=== PATIENT | female | born 1975 | race Caucasian/White ===

== ENCOUNTER 2024-02-13 06:51 | Emergency (ER) | payer OTHER, SELFPAY ==
[2024-02-13 06:52] VITALS: BP 165/81; PULSE 78; RESP 15; TEMP 36.8; O2SAT 96; BMI 37.3
--- NOTE | 2024-02-13 07:01 | XR_ITS ---
FINAL REPORT CLINICAL HISTORY: R knee pain COMPARISON: None FINDINGS: Three views of the right knee reveal no evidence of fracture or dislocation. The bony alignment is normal. Moderate to severe degenerative changes are noted. There is severe medial compartment and patellofemoral compartment narrowing. There are several loose bodies in the suprapatellar bursa and posteriorly. There is no evidence of joint effusion. IMPRESSION: Several loose bodies in the suprapatellar bursa and posteriorly. Reviewed, Interpreted and Dictated by Avni Solano III, MD Transcribed by Zeynep Torrez Authenticated and [facility]
--- NOTE | 2024-02-13 07:02 | ED_ITS ---
Discharge Plan Disposition Patient Disposition: Home, Self-Care Referrals Follow up/Referrals: Kristian Vázquez [Primary Care Provider] - See instructions Dl Mittal DO [Staff Physician] - See instructions Activity Restrictions/Add. Instructions Additional Instructions/Restrictions: Take Tylenol 1000 mg every 6 hours and ibuprofen 400 mg every 6 hours as needed for pain. Weight-bear as tolerated. Follow-up with orthopedic surgery. You should call their clinic to schedule an appointment. Information has been attached. Please return to the emerged part with any new, concerning, or worsening symptoms. Clinical Impressions Clinical Impression: Acute knee pain Qualifiers: Laterality: right Qualified Code(s): M25.561 - Pain in right knee Stand Alone Forms Stand Alone Forms: Work/School Release Print Language Print Language: Barbadian Discharge ED Provider: Casey Brothers General Adult HPI General Chief complaint: Extremity Injury, Lower Stated complaint: R knee pain, swelling Time Seen by Provider: 02/13/24 06:54 Mode of Arrival: Ambulatory Source of Information: Patient Limitations: No Limitations History of Present Illness HPI narrative: This is a 48-year-old female who presents with right knee pain. States that her knee has been bothering her over the last couple of days however popped in the middle of the night last night and she has had worsening pain since then. Has been ambulatory with difficulty. States that she has to walk up multiple stairs for work. Is able to flex knee, however not all the way. No other known injuries. States that she had a body fragment removal surgery in her right knee in the past up in [place]. Related Data Allergies Allergy/AdvReac Type Severity Reaction Status Date / Time No Known Allergies Allergy Verified 02/13/24 07:15 [facility] Disclaimer: The information contained in this section may have been updated after the patient was seen, as this information can be updated by other users. Social History Smoking Status: Never smoker alcohol intake: former current occupational status: employed Travel in the last 8 weeks: None ROS Obtained: Yes All systems reviewed & no additional complaints except as documented Physical Exam General General appearance: alert and in no apparent distress Eye Eye exam: Present normal appearance, PERRL and EOMI Respiratory Respiratory exam: Present normal lung sounds bilaterally; Absent respiratory distress Cardiovascular Cardiovascular exam: Present regular rate and normal rhythm Abdominal Exam Abdominal exam: Present soft and distention; Absent tenderness, guarding or rebound Extremities Exam Extremities exam: Present other (RLE: Tenderness at the lateral joint line. No significant effusion. Active and passive range of motion limited secondary to pain. Able to flex to about 50 degrees. Neurovascularly intact distally. ) Neurological Exam Neurological exam: Present alert and oriented X3 Skin Skin exam: Present warm and dry Medical Decision Making Medical Records Medical records reviewed: Yes I reviewed the patient's medical records. Screening: Per USPSTF and CDC recommendations, given the prevalence of disease in our region, it is our hospital?s policy to screen for HIV and viral Hepatitis for all patients aged 18 and over and those with ongoing risk factors. Faustino Inquiry Pt receiving controlled substance: No Vital Signs: 02/13/24 06:52 02/13/24 07:30 Temperature 98.3 F Temperature Source Oral Pulse Rate 71 Pulse Rate [Right] 78 Respiratory Rate 15 Blood Pressure 159/75 H Blood Pressure [Right Arm] 165/81 H Blood Pressure Mean [Right Arm] 109 Blood Pressure Source [Right Arm] Automatic Cuff Blood Pressure Position [Right Arm] Supine 02 Sat by Pulse Oximetry 96 96 Oxygen Delivery Method Room Air Room Air Orders (Tests/Meds): ED MEDICATIONS Discontinued Medications Generic Name Dose Route Start Last Admin Trade Name Freq PRN Reason Stop Dose Admin Acetaminophen 1,000 mg 02/13/24 07:01 02/13/24 07:25 Acetaminophen 500mg Tab PO 02/13/24 07:02 1,000 mg ONCE ONE Administration Ibuprofen 400 mg 02/13/24 07:01 02/13/24 07:25 Ibuprofen 400 Mg Tablet PO 02/13/24 07:02 400 mg ONCE ONE Administration ORDERS Category Date Time Status Knee XR right 3 views [XR knee RT 3V] Stat Exams 02/13/24 07:01 Taken Medical Decision Narrative: In summary, this 48-year-old female presents to the emergency department today with right knee pain. On initial evaluation patient is nontachycardic, afebrile, nontoxic-appearing. No significant effusion to the right knee. Limited range of motion to 45 degrees of flexion secondary to pain. No deformity. Tenderness of the lateral joint line. Differential diagnosis includes but is not limited to meniscus injury, other ligamentous injury, fracture, dislocation, septic arthritis. Low clinical suspicion for septic arthritis given no significant erythema or joint effusion. No fever. Based on these concerns, I ordered x-ray of the right knee. Patient received Tylenol 1000 mg and ibuprofen 400 mg for treatment. XR personally interpreted demonstrates no acute fractures or dislocations. Chronic degenerative changes suggestive of osteoarthritis. Gave referral to orthopedic surgery for follow-up. Instructed on symptomatic management at home. Appropriate for discharge at this time. Patient was ambulatory Critical Care Critical Care Time Critical Care Time: No
--- NOTE | 2024-02-13 07:10 | PC.NURSE ---
PT AMBULATORY TO XR
[2024-02-13] MEDS: IBUPROFEN 400 MG TABLET PO (07:25)
[2024-02-13] MEDS: ACETAMINOPHEN 500MG TAB 1000 MG PO (07:25)
--- NOTE | 2024-02-13 07:29 | PC.NURSE ---
PT RETURNED FROM XR
[2024-02-13 07:30] VITALS: BP 159/75; PULSE 71; O2SAT 96
--- NOTE | 2024-02-13 07:37 | PC.NURSE ---
Patient in room. No needs at this time with the call button.
--- NOTE | 2024-02-13 07:42 | PC.NURSE ---
BIENVENIDO BREWER at for update on POC
[2024-02-13 07:55] VITALS: BP 159/75; PULSE 71; RESP 18; TEMP 36.8; O2SAT 96
== END 2024-02-13 07:55 | disposition home or self-care (01) ==
PROVIDERS: Emergency Provider Student in an Organized Health Care Education/Training Program; PCP Pediatrics
DX: M25.561 Pain in right knee (principal)
CPT/HCPCS: 73562; 99283

== ENCOUNTER 2024-02-23 14:55 | Emergency (ER) | payer OTHER, SELFPAY ==
[2024-02-23] VITALS (8 sets, daily range): BP systolic 129–170; BP diastolic 77–128; PULSE 72–83; RESP 12–24; TEMP 36.8–36.9; O2SAT 98–100; BMI 36.2
--- NOTE | 2024-02-23 14:54 | ECG_ITS ---
APPROVED REPORT Exam: Resting ECG HR:68 bpm ECG Measurements Heart Rate 68 AXES WY 176 P 34 QRSd 96 QRS 47 QT 433 T 59 QTc 450 Conclusion SINUS RHYTHM NORMAL ECG UNCONFIRMED REPORT Electronically signed by : SYLVESTER GORMAN, 02/24/2024 06:50:26
--- NOTE | 2024-02-23 15:11 | PC.NURSE ---
Difficulty obtaining labs d/t pt being a difficult stick.
--- NOTE | 2024-02-23 15:12 | XR_ITS ---
FINAL REPORT CLINICAL HISTORY: chest tightness, pre-syncopal episode @ work COMPARISON: None FINDINGS: No acute pulmonary opacity is present. There is no evidence of effusion or pneumothorax. Mediastinum is unremarkable. Heart size is normal. IMPRESSION: No acute abnormality. Reviewed, Interpreted and Dictated by Peter Grant MD Transcribed by Zeynep Torrez Authenticated and [facility]
[2024-02-23 15:42] LABS: Albumin Level 3.8 g/dl (3.5-5.0); Chloride 108 mmol/L (98-107)
[2024-02-23 15:43] LABS: Potassium 3.6 mmoL/L (3.5-5.1); Sodium 136 mmol/L (136-145)
[2024-02-23 15:45] LABS: Alanine Aminotransferase 23 U/L (12-78); Anion Gap 4.6 mEq/L (5-15); Aspartate Amino Transferase 29 U/L (14-36); Blood Urea Nitrogen 16 mg/dl (7-17); Carbon Dioxide 27 mmol/L (22.0-30.0); Creatinine Clearance Estimated 141 mL/min (50-200); Estimated Glomerular Filt Rate 67 ml/min (>60); GFR (African American) 81 ML/MIN (>60)
[2024-02-23 15:46] LABS: Albumin/Globulin Ratio 1.7 (1.1-1.8); Alkaline Phosphatase 77 U/L (38-126); Bilirubin,Total 0.4 mg/dl (0.2-1.3); Calcium 8.9 mg/dl (8.4-10.2); Globulin 2.3 g/dL (1.3-3.2); Glucose 116 mg/dl (74-100); Total Protein,Serum 6.1 g/dl (6.3-8.2)
[2024-02-23 15:48] LABS: Hematocrit 32.7 % (37.0-47.0); Hemoglobin 10.2 g/dL (12.2-16.2); Mean Corpuscular HGB Conc 31.2 g/dL (31.8-35.4); Mean Corpuscular Hemoglobin 25.5 pg (27.0-31.2); Mean Corpuscular Volume 81.8 fl (81-99); Platelet Count 227 K/mm3 (142-424); Red Cell Distribution Width 14.6 % (11.5-17.5); White Blood Count 8.4 K/mm3 (4.8-10.8)
[2024-02-23 15:49] LABS: Basophils % 0.5 % (0.1-2.0); Eosinophils # 0.2 K/mm3 (0.0-0.4); Lymphocytes # 1.7 K/mm3 (0.7-4.5); Lymphocytes % 19.8 % (10-50); Mean Platelet Volume 10.6 fl (7.4-10.4); Monocytes # 0.4 K/mm3 (0.1-1.0); Monocytes % 4.8 % (1.7-9.3); Neutrophils # 6.1 K/mm3 (1.8-7.8); Neutrophils % 72.7 % (37.0-80.0)
[2024-02-23 16:08] LABS: Troponin I < 0.01 ng/ml (0.00-0.034)
[2024-02-23] MEDS: NITROGLYCERIN 0.4MG SL TABLET 0.4 MG SL (16:40)
[2024-02-23] MEDS: KETOROLAC 30MG/ML VIAL 15 MG IV (16:45)
[2024-02-23] MEDS: BELLADONNA ALKALOIDS 60 ML ML PO (16:46)
--- NOTE | 2024-02-23 17:01 | ED_ITS ---
Discharge Plan Disposition Patient Disposition: Home, Self-Care Condition: Good Prescriptions Prescriptions: New ketorolac 10 mg tablet 10 mg PO Q8H PRN (Reason: pain) 5 Days Qty: 20 0RF Referrals Follow up/Referrals: Kristian Vázquez [Primary Care Provider] - See instructions Fortino Curtis MD [Staff Physician] - See instructions Activity Restrictions/Add. Instructions Additional Instructions/Restrictions: As we discussed, your workup here today was overall reassuring. Your blood count was 10.2, which is slightly low. I do not have any previous labs to compare this to but that could be a cause of some of your symptoms. I would like you to follow-up with a automatic packer operator, and have placed a referral, as you may need further testing to make sure that this is not a heart condition that is chronic in nature and would require further treatment long-term. Please return with any new or worsening symptoms. Clinical Impressions Clinical Impression: Acute chest pain Stand Alone Forms Stand Alone Forms: Work/School Release Instructions Patient Instructions: DI for Chest Pain Print Language Print Language: Beninese Discharge ED Provider: Faustino Ferguson Adult HPI General Chief complaint: Chest Pain Stated complaint: chest tightness, pre syncope Time Seen by Provider: 02/23/24 16:20 Mode of Arrival: Family Vehicle Source of Information: Patient Limitations: No Limitations Description of Symptoms (Recalled from ER Triage Doc. by RN): Pt c/o an episode of chest tightness, pre-syncopal event, and SOA while at work this afternoon, @ approx 1330. 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 States he father and mother have had heart troubles. She does report a hx of MS. History of Present Illness HPI narrative: Patient presents for evaluation of chest tightness, associated shortness of breath exertional onset, nonradiating, nonpleuritic, and no associated palpitations syncope or presyncope. Has not had similar symptoms before. Was in normal state of health prior to onset of symptoms. No pain elsewhere. No exacerbating or alleviating factors at this time. Pain is largely resolved at this time. Please note that above description of symptoms, in this electronic medical record under categorization of recalled from ER triage doctor by RN are reflective of an initial nursing assessment, however, is not reflective of my full history and physical exam that was personally taken and clarified. Consequentially, this preceding description of symptoms, which may include the patient's categorized chief complaint in the EMR, do not reflect my personal clinical impression, and the ultimate description of history of present illness and patient stated complaints should be deferred to this section of the note. Unless stated otherwise or congruent with this section of the note, additional signs, symptoms, or incongruence should be interpreted as inaccurate with my clinical impression. Related Data Previous Rx's ?Medication ?Instructions ?Recorded ketorolac 10 mg tablet 10 mg PO Q8H PRN pain 5 days #20 02/23/24 tabs Allergies Allergy/AdvReac Type Severity Reaction Status Date / Time No Known Allergies Allergy Verified 02/13/24 07:15 [facility] Disclaimer: The information contained in this section may have been updated after the patient was seen, as this information can be updated by other users. Social History (Updated 02/13/24 @ 07:49 by Casey Brothers MD) Smoking Status: Never smoker alcohol intake: former current occupational status: employed Travel in the last 8 weeks: None Have you lived/traveled outside [place] in past 30 days?: No Contact w/someone who lives/traveled outside US past 30 days?: No Exposure to someone with infectious disease in past 14 days?: No Do you have a fever (greater than 100.4 F or 38 C)?: No Have you tested positive for COVID-19: No Exposed to someone with COVID-19 in past 14 days?: No Do you have a sore throat?: No Do you have a cough?: No Do you have any weakness?: No Do you have any diarrhea?: No Are you experiencing any unusual bleeding?: No Do you have any muscle aches/pain?: No Do you have any abdominal pain?: No Are you experiencing loss of taste or smell?: No ROS Obtained: Yes other As per HPI Physical Exam General General appearance: alert and in no apparent distress Head Head exam: atraumatic and normocephalic Eye Eye exam: Present normal appearance Neck Neck exam: Present normal inspection Chest Chest inspection: Present normal inspection and symmetric chest wall rise Respiratory Respiratory exam: Present normal lung sounds bilaterally; Absent respiratory distress Cardiovascular Cardiovascular exam: Present regular rate and normal rhythm Abdominal Exam Abdominal exam: Present soft Neurological Exam Neurological exam: Present alert and oriented X3 Psychiatric Psychiatric exam: Present normal affect and normal mood Skin Skin exam: Present warm and dry Medical Decision Making Medical Records Medical records reviewed: Yes I reviewed the patient's medical records. Screening: Per USPSTF and CDC recommendations, given the prevalence of disease in our region, it is our hospital?s policy to screen for HIV and viral Hepatitis for all patients aged 18 and over and those with ongoing risk factors. Faustino Inquiry Pt receiving controlled substance: No Vital Signs: 02/23/24 14:56 02/23/24 16:00 02/23/24 16:31 Temperature 98.4 F Temperature Source Oral Pulse Rate 77 79 Pulse Rate [Right] 72 Respiratory Rate 24 19 17 Blood Pressure 129/82 169/82 H Blood Pressure [Right Arm] 170/102 H Blood Pressure Mean [Right Arm] 124 Blood Pressure Source [Right Arm] Automatic Cuff 02 Sat by Pulse Oximetry 100 99 99 Oxygen Delivery Method Room Air Room Air Room Air 02/23/24 17:00 02/23/24 17:30 02/23/24 18:00 Temperature Temperature Source Pulse Rate 80 72 78 Pulse Rate [Right] Respiratory Rate 22 20 18 Blood Pressure 147/81 H 150/86 H 160/128 H Blood Pressure [Right Arm] Blood Pressure Mean [Right Arm] Blood Pressure Source [Right Arm] 02 Sat by Pulse Oximetry 98 99 99 Oxygen Delivery Method Room Air Room Air Room Air 02/23/24 18:30 02/23/24 19:30 Temperature 98.2 F Temperature Source Pulse Rate 83 82 Pulse Rate [Right] Respiratory Rate 12 22 Blood Pressure 159/77 H 159/77 H Blood Pressure [Right Arm] Blood Pressure Mean [Right Arm] Blood Pressure Source [Right Arm] 02 Sat by Pulse Oximetry 99 Oxygen Delivery Method Lab Data Lab Results 02/23/24 15:22: WBC 8.4, RBC 4.00 L, Hgb 10.2 L, Hct 32.7 L, MCV 81.8, MCH 25.5 L, MCHC 31.2 L, RDW 14.6, Plt Count 227, MPV 10.6 H, Neut % (Auto) 72.7, Lymph % (Auto) 19.8, [place] % (Auto) 4.8, Eos % (Auto) 2.0, Baso % (Auto) 0.5, Neut # (Auto) 6.1, Lymph # (Auto) 1.7, [place] # (Auto) 0.4, Eos # (Auto) 0.2, Baso # (Auto) 0.0, Sodium 136, Potassium 3.6, Chloride 108 H, Carbon Dioxide 27, Anion Gap 4.6 L, BUN 16, Creatinine 0.90, Estimated Creat Clear 141, Estimated GFR 67, Est GFR ( Amer) 81, Glucose 116 H, Calcium 8.9, Total Bilirubin 0.4, AST 29, ALT 23, Alkaline Phosphatase 77, Troponin I < 0.01, Total Protein 6.1 L, Albumin 3.8, Globulin 2.3, Albumin/Globulin Ratio 1.7, Lipase 63 02/23/24 15:57: HIV Ag/Ab Combo Qual Negative 02/23/24 18:00: Troponin I < 0.01 02/23/24 15:22 02/23/24 15:22 Orders (Tests/Meds): ED MEDICATIONS Discontinued Medications Generic Name Dose Route Start Last Admin Trade Name Freq PRN Reason Stop Dose Admin Belladonna Alkaloids 60 ml 02/23/24 16:29 02/23/24 16:46 Belladonna Alkaloids 60 Ml Ml PO 02/23/24 16:30 60 ml ONCE ONE Administration Ketorolac Tromethamine 15 mg 02/23/24 16:29 02/23/24 16:45 Ketorolac 30mg/Ml Vial IV 02/23/24 16:30 15 mg ONCE ONE Administration Nitroglycerin 0.4 mg 02/23/24 16:29 02/23/24 16:40 Nitroglycerin 0.4mg Sl Tablet SL 03/24/24 16:28 0.4 mg Q5MINP PRN Administration Chest Pain ORDERS Category Date Time Status CXR --portable [XR chest portable] Stat Exams 02/23/24 15:12 Completed Complete Blood Count Auto Diff Stat Lab 02/23/24 15:22 Completed Comprehensive Metabolic Panel Stat Lab 02/23/24 15:22 Completed HIV Combo Stat Lab 02/23/24 15:57 Completed Hep C Ab with Reflex to RNA Stat Lab 02/23/24 15:57 Ordered Lipase Stat Lab 02/23/24 15:22 Completed Troponin I Q3H Lab 02/23/24 18:00 Completed Troponin I Stat Lab 02/23/24 15:22 Completed Medical Decision Narrative: Patient with history and exam per above presenting for evaluation of chest pain, shortness of breath Diagnoses considered include ACS, stable angina, symptomatic anemia, among others. ED workup and treatment included: ED MEDICATIONS Discontinued Medications Generic Name Dose Route Start Last Admin Trade Name Freq PRN Reason Stop Dose Admin Belladonna Alkaloids 60 ml 02/23/24 16:29 02/23/24 16:46 Belladonna Alkaloids 60 Ml Ml PO 02/23/24 16:30 60 ml ONCE ONE Administration Ketorolac Tromethamine 15 mg 02/23/24 16:29 02/23/24 16:45 Ketorolac 30mg/Ml Vial IV 02/23/24 16:30 15 mg ONCE ONE Administration Nitroglycerin 0.4 mg 02/23/24 16:29 02/23/24 16:40 Nitroglycerin 0.4mg Sl Tablet SL 03/24/24 16:28 0.4 mg Q5MINP PRN Administration Chest Pain ORDERS Category Date Time Status CXR --portable [XR chest portable] Stat Exams 02/23/24 15:12 Completed Complete Blood Count Auto Diff Stat Lab 02/23/24 15:22 Completed Comprehensive Metabolic Panel Stat Lab 02/23/24 15:22 Completed HIV Combo Stat Lab 02/23/24 15:57 Completed Hep C Ab with Reflex to RNA Stat Lab 02/23/24 15:57 Ordered Lipase Stat Lab 02/23/24 15:22 Completed Troponin I Q3H Lab 02/23/24 18:00 Completed Troponin I Stat Lab 02/23/24 15:22 Completed Labs were independently interpreted by me, significant for troponins within normal limits x 2, hemoglobin 10.2 Imaging was independently visualized and interpreted by me, significant for no acute findings Please refer to radiology report for full details. My clinical impression at this time is most consistent with likely stable angina. Patient with improvement of symptoms upon repeat evaluation. Amenable to discharge at this time. Will benefit from cardiology follow-up I discussed my clinical impression with patient and answered all questions. At this time, the evidence for any other entities in the differential is insufficient to warrant any further testing or ED observation. This was explained to the patient. The patient was advised that persistent or worsening symptoms require further evaluation. Critical Care Critical Care Time Critical Care Time: No
[2024-02-23 17:14] LABS: HIV Combo NEGATIVE (Negative)
[2024-02-23 18:52] LABS: Troponin I < 0.01 ng/ml (0.00-0.034)
[2024-02-23 20:48] LABS: Lipase 63 U/L (23-300)
[2024-02-25 05:26] LABS: HCV Ab Non Reactive (Non Reactive)
== END 2024-02-23 19:35 | disposition home or self-care (01) ==
PROVIDERS: Emergency Provider Emergency Medicine; PCP Pediatrics
DX: R07.9 Chest pain, unspecified (principal); R07.89 Other chest pain; R55 Syncope and collapse; R06.02 Shortness of breath
CPT/HCPCS: 71045; 80053; 83690; 84484; 85025; 86803; 87389; 93005; 96374; 99283; J1885

== ENCOUNTER 2024-03-06 10:42 | Outpatient (CLI) | payer OTHER, SELFPAY ==
[2024-03-06 12:13] LABS: Free T4 (Free Thyroxine) 1.32 ng/dl (0.78-2.19)
[2024-03-06 14:25] LABS: Albumin Level 3.8 g/dl (3.5-5.0)
[2024-03-06 14:28] LABS: Aspartate Amino Transferase 23 U/L (14-36)
[2024-03-06 14:29] LABS: Alkaline Phosphatase 71 U/L (38-126); Bilirubin,Direct 0.3 mg/dl (0.0-0.4); Bilirubin,Total 0.3 mg/dl (0.2-1.3); Chol/HDL Ratio 5.2 (1-3.5); Cholesterol 196 mg/dl (140-200); HDL Cholesterol 38 mg/dl (40-60); Total Protein,Serum 6.1 g/dl (6.3-8.2); Triglycerides 115 mg/dl (30-150); VLDL Cholesterol 23 mg/dL (0-40)
[2024-03-06 14:42] LABS: Direct LDL Cholesterol 137.11 mg/dL (100-129)
[2024-03-06 14:59] LABS: Thyroid Stimulating Hormone 1.77 uIU/mL (0.465-4.68)
[2024-03-06 15:03] LABS: Alanine Aminotransferase 20 U/L (12-78)
== END 2024-03-06 23:59 | disposition home or self-care (01) ==
LOC: LAB 10:43
PROVIDERS: PCP Pediatrics; Visit Provider Nurse Practitioner
DX: R07.9 Chest pain, unspecified (principal); R06.00 Dyspnea, unspecified; R94.31 Abnormal electrocardiogram [ECG] [EKG]; Z82.49 Family history of ischemic heart disease and other diseases of the circulatory system; I10 Essential (primary) hypertension
CPT/HCPCS: 36415; 80061; 80076; 84439; 84443

== ENCOUNTER 2024-03-13 06:40 | Outpatient (CLI) | payer OTHER, SELFPAY ==
--- NOTE | 2024-03-13 | CA_ITS ---
APPROVED REPORT Exam: Pharmacologic Technologist: Beth Pop Ht: 5 ft 11 in Wt: 270 lbs BSA: 2.40 m2 HR: 78 bpm BP: 132/82 mmHg Stress Test Details Test: Lexiscan HR Resting HR: 78 bpm Max Heart Rate (APMHR): 171.783332 bpm Max HR Achieved: 106 bpm Target HR (85% APMHR): 145.965589 bpm % of APMHR: 61.99 Recovery HR: 87 bpm BP Resting BP: 132.0/82.0 mmHg Max BP: 148.0/86.0 mmHg Recovery BP: 131.0/83.0 mmHg ECG Resting ECG: Sinus rhythm Stress ECG Conclusion Symptoms: Chest tightness, shortness of breath Arrhythmias/Ectopy: PVC ST-T Changes: Less than [address] depression EKG portion unremarkable due to Lexiscan infusion. Electronically signed by : Tamar Wolf MD 03/14/2024 01:53:25
--- NOTE | 2024-03-13 07:05 | NM_ITS ---
APPROVED REPORT Exam: Nuclear Stress Test Indication: Chest pain, SOB, HTN, Family history Patient Location: Outpatient Stress Tech: Beth Pop NM Tech:Anika Lemus, ARRT, RT (R)(N) Ht: 5 ft 11 in Wt: 270 lbs Bra Size: 42D HR: 77 bpm BP: 132/82 mmHg BSA: 2.40 m2 Rhythm: NSR TID: 1.11 BMI: 37.6 History: Chest pain, SOB, HTN, Family history Procedure: Patient received 0.4 mg of intravenous Lexiscan, resting heart rate 77 bpm, resting blood pressure 132/82 mmHg, with Lexiscan maximum heart rate achieved was 107 bpm which is % of the maximum predicted heart rate and blood pressure was 148/86 mmHg. With Lexiscan, patient denied any complaint of chest pain. Cardiac Stress and Resting SPECT Images: Cardiac Stress and Resting SPECT images were obtained using technetium 99m Myoview 30.8 mCi stress and 10.50 mCi at rest. Resting and stress imaging in supine and prone positions demonstrate no evidence of fixed or reversible perfusion defects. Gated imaging demonstrates normal global and regional LV systolic function. LVEF cannot be calculated due to variable HR during image acquisition. Conclusion: No evidence of fixed or reversible perfusion defects. Gated imaging demonstrates normal global and regional LV systolic function. LVEF cannot be calculated due to variable HR during image acquisition. Electronically signed by : Tamar Wolf MD 03/14/2024 01:53:14
[2024-03-13] MEDS: SODIUM CHLORIDE 0.9% 10ML SYR (RAD ONLY) 10 ML IV ×2 (08:35)
[2024-03-13] MEDS: ISOTOPE MYOVIEW (PER STUDY) 1 DOSE IV (08:35)
[2024-03-13] MEDS: REGADENOSON 0.4MG/5ML SYRINGE 0.4 MG IV (08:35)
== END 2024-03-13 23:59 | disposition home or self-care (01) ==
LOC: RAD 06:41
PROVIDERS: PCP Pediatrics; Visit Provider Nurse Practitioner
DX: R94.31 Abnormal electrocardiogram [ECG] [EKG] (principal); R06.00 Dyspnea, unspecified; I10 Essential (primary) hypertension; R07.9 Chest pain, unspecified; Z82.49 Family history of ischemic heart disease and other diseases of the circulatory system
CPT/HCPCS: 78452; 93017; 93018; 93306; A9502; J2785

== ENCOUNTER 2024-05-01 07:45 | Outpatient (CLI) | payer OTHER, SELFPAY ==
[2024-05-01 07:27] VITALS: BMI 36.8
--- NOTE | 2024-05-01 07:46 | CT_ITS ---
APPROVED REPORT Cabinetmaker Apprentice: CLINICAL INDICATION Chest Pain TECHNIQUE Image Acquisition: A 128 slice MDCT scanner ([employer] View) was used for data acquisition. A noncontrast coronary calcium scan was performed. A CT attenuation threshold of 130 Hounsfield units (HU) was used for the detection of calcium in contiguous voxels of 1 sq mm in area to be counted as individual lesions. Bolus tracking in the ascending aorta with a threshold of 180 HU was performed. Immediately afterwards, ECG synchronized cardiac CT was then performed from the cardiac base to apex using retrospective gating with ECG tube current modulation. A total of 85 mL of Isovue 370 mg/mL contrast medium was administered at 5 mL/sec followed by a saline flush using a biphasic injection protocol. A tube voltage of 120 KVp was used. The patient received the following medications prior to the cardiac CT. 75 mg of oral metoprolol 15 mg of oral ivabradine 0.4 mg of sublingual nitroglycerin The average heart rate at the time of acquisition was 55 bpm and regular. Image Reconstruction Transaxial images were reconstructed at 0.67 mm slide thickness. Data was reviewed interactively on an advanced workstation capable of 2 and 3-dimensional displays in all conventional reconstruction formats, including multiplanar reformations, maximum intensity projections, curved multiplanar reformations, and volume rendered reconstructions. When applicable, selected routine images describing the relevant coronary anatomy and pathology were saved and sent to PACS. Complications None Technical Quality Overall image quality was good. Coronary artery opacification was adequate. Total DLP (Dose-Length Product) is 1748.8 mGy-cm. The reported value represents the total of one or more individual components during the CT acquisition of this date and at this time, and as such, the same value may appear in more than one CT report depending on the interpreting/reporting physicians. COMPARISON None FINDINGS CT Coronary Calcium Scoring LMA (Left Main Artery) = 0 LAD (Left Anterior Descending) = 0 LCX (Left Coronary Circumflex) = 0 RCA (Right Coronary Artery) = 0 Total Calcium Score = 0 using the AJ-130 method. The interpretation of the calcium heart score is based on the following continuum*: 0 = no calcified plaque detected (risk of coronary artery disease is very low ??? less than 5%) 1-10 = calcium detected in extremely minimal levels (risk of coronary diseases is still low ??? less than 10%) 11-100 = mild levels of plaque detected with certainty (mild or minimal narrowing of heart arteries is likely) 101-400 = definite,at least moderate levels of plaque detected (relatively high risk of a heart attack within 3-5 years) >401-999 = extensive levels of plaque detected (high risk of heart attack, high levels of vascular disease are present, high likelihood of at least one significant coronary narrowing) *The calcium heart score quantifies the burden of coronary calcification/plaque in the coronary arteries. The calcium heart score is not able to evaluate the presence or burden of non-calcified (i.e. soft) plaque. There is no identifiable calcification in the aortic valve, mitral annulus or mitral valve, pericardium, or myocardium. Coronary CT Angiography The coronary arterial system is right dominant. Quantitative Stenosis Grading: Left Main (LM): The left main originates normally from the left sinus of Valsalva. The LM bifurcates into the left anterior descending artery and left circumflex artery. The LM is patent with no evidence of atherosclerosis. Left Anterior Descending (LAD) and Diagonal Branches: The LAD gives off 3 diagonal branch(es). The LAD and its branches are patent with no evidence of atherosclerosis. There is no evidence of LAD-myocardial bridge. Left Circumflex (LCX) and Obtuse Marginals (OM): The LCX gives off 1 Obtuse Marginal (OM) branch(es). The LCX and its branches are patent with no evidence of atherosclerosis. Right Coronary Artery (RCA): The RCA originates normally from the right sinus of Valsalva. The RCA gives off a posterior descending artery (PDA) and posterolateral (PL) branches. The RCA and its branches are patent with no evidence of atherosclerosis. Non-Coronary Cardiac Findings: Analysis of the left ventricular (LV) structure and function was performed after 3-D reconstruction of the LV from axial images, with user-corrected automatic contouring for assessment of LV volumes and user-defined reconstruction from oblique planes for measurement of 3-D cardiac structure and function. -The left ventricle systolic function is normal. -There is no left atrial appendage filling defect. Two right pulmonary veins and two left pulmonary veins drain normally into the left atrium. -No pericardial thickening or calcification. -Central and branch pulmonary arteries in the [id number] are unremarkable. -Thoracic aorta within the visualized thoracic aortic-branches in the [id number] is unremarkable. Extracardiac Structures No significant extra-cardiac findings. Note, however, that this study is focused on the cardiac findings. IMPRESSION -Absence of coronary calcification with an Agatston score = 0 using the AJ-130 method. -No evidence of significant flow-limiting atherosclerosis of the coronary arteries. -CAD-RADS 0. Management recommendations per ACC/AHA guidelines*, as clinically appropriate. *Recommendations: CAD RADS 0: Reassurance. Consider non-atherosclerotic causes of chest pain. CAD RADS 1: Consider non-atherosclerotic causes of chest pain. Consider preventive therapy and risk factor modification. CAD RADS 2: Consider non-atherosclerotic causes of chest pain. Consider preventive therapy and risk factor modification, particularly for patients with nonobstructive plaque in multiple segments. CAD RADS 3: Consider further functional testing. Consider symptom-guided anti-ischemic and preventive pharmacotherapy as well as risk factor modification per published guideline statements. CAD RADS 4A: Consider further functional testing or invasive coronary angiography with revascularization per published guideline statements. Consider symptom-guided anti-ischemic and preventive pharmacotherapy as well as risk factor modification per published guideline statements. CAD RADS 4B: Invasive coronary angiography recommended with revascularization per published guideline statements. Consider symptom-guided anti-ischemic and preventive pharmacotherapy as well as risk factor modification per published guideline statements. CAD RADS 5: Consider invasive angiography and/or viability assessment with revascularization per published guideline statements. Consider symptom-guided anti-ischemic and preventive pharmacotherapy as well as risk factor modification per published guideline statements. CRITICAL RESULT None COMMUNICATION Per this written report The coronary and cardiac findings of this CCTA were reviewed, reported, and signed by Víctor Wolf MD (Roll Cutting Operator) Conclusion Electronically signed by : Tamar Wolf MD 05/02/2024 12:37:34
[2024-05-01 07:59] VITALS: BP 157/78; PULSE 84; RESP 18; TEMP 36.6; O2SAT 98
[2024-05-01 08:27] LABS: Urine Pregnancy, HCG Qual. Negative (Negative)
[2024-05-01] MEDS: METOPROLOL TARTRATE 25MG TABLET 25 MG (08:38)
[2024-05-01] MEDS: METOPROLOL TARTRATE 50MG TABLET PO (08:38)
[2024-05-01] MEDS: IVABRADINE HCL 7.5MG TABLET PO (08:38)
[2024-05-01 08:48] LABS: Chloride 106 mmol/L (98-107); Potassium 4.1 mmoL/L (3.5-5.1); Sodium 137 mmol/L (136-145)
[2024-05-01 08:51] LABS: Blood Urea Nitrogen 14 mg/dl (7-17); Creatinine Clearance Estimated 143 mL/min (50-200); Estimated Glomerular Filt Rate 67 ml/min (>60); GFR (African American) 81 ML/MIN (>60)
[2024-05-01 08:52] LABS: Anion Gap 9.1 mEq/L (5-15); Calcium 9.1 mg/dl (8.4-10.2); Carbon Dioxide 26 mmol/L (22.0-30.0); Glucose 106 mg/dl (74-100)
[2024-05-01 09:45] VITALS: BP 129/69; PULSE 64; RESP 18; O2SAT 99
[2024-05-01 09:50] VITALS: BP 99/60; PULSE 63; RESP 18; O2SAT 98
[2024-05-01 09:55] VITALS: BP 112/50; PULSE 63; RESP 18; O2SAT 98
[2024-05-01 10:00] VITALS: BP 100/54; PULSE 57; RESP 18; O2SAT 99
[2024-05-01 10:05] VITALS: BP 125/68; PULSE 57; RESP 18; O2SAT 100
[2024-05-01] MEDS: IOPAMIDOL-370 (76%);100ML BOTTLE 85 ML IV (10:06)
[2024-05-01] MEDS: 0.9 % SODIUM CHLORIDE 50 ML VIAL IV (10:06)
[2024-05-01] MEDS: SODIUM CHLORIDE 0.9% 10ML SYR (RAD ONLY) 10 ML IV (10:06)
== END 2024-05-01 10:05 | disposition home or self-care (01) ==
PROVIDERS: PCP Pediatrics; Visit Provider Nurse Practitioner Family
DX: R94.31 Abnormal electrocardiogram [ECG] [EKG] (principal); R07.89 Other chest pain
CPT/HCPCS: 75574; 80048; 81025; Q9967

== ENCOUNTER 2024-06-05 17:29 | Emergency (ER) | payer OTHER, SELFPAY ==
[2024-06-05 18:13] VITALS: BP 133/70; PULSE 97; RESP 16; TEMP 36.9; O2SAT 100; BMI 36.8
--- NOTE | 2024-06-05 19:30 | [facility]H.EDGENADL ---
Discharge Plan Disposition Patient Disposition: Home, Self-Care Condition: Good Prescriptions Prescriptions: No Action celecoxib [Celebrex] 200 mg capsule 200 mg PO BID Patient Comments: TAKE 1 CAPSULE BY MOUTH 2 TIMES DAILY FOR 120 DAYS. gabapentin 300 mg capsule 300 mg PO TID Patient Comments: TAKE 2 CAPSULES BY MOUTH 3 TIMES DAILY FOR 30 DAYS. naproxen 500 mg tablet 500 mg PO Q12H PRN Patient Comments: TAKE 1 TABLET BY MOUTH EVERY 12 HOURS NEEDED FOR UP TO 90 DAYS. FOR PAIN aspirin [Adult Low Dose Aspirin] 81 mg tablet,delayed release (DR/EC) 81 mg PO DAILY Qty: 30 5RF hydrochlorothiazide 12.5 mg tablet 12.5 mg PO DAILY Qty: 30 2RF omeprazole 20 mg capsule,delayed release(DR/EC) 20 mg PO DAILY Qty: 30 2RF tizanidine 4 mg tablet 4 mg PO TID PRN Patient Comments: TAKE 1 TABLET BY MOUTH THREE TIMES A DAY buspirone 10 mg tablet 10 mg PO BID PRN Patient Comments: TAKE 1 TABLET BY MOUTH TWICE A DAY NEEDED losartan 50 mg tablet 50 mg PO DAILY Qty: 30 5RF rosuvastatin [Crestor] 20 mg tablet 20 mg PO DAILY Qty: 30 5RF ketorolac 10 mg tablet 10 mg PO Q8H PRN (Reason: pain) 5 Days Qty: 20 0RF Referrals Follow up/Referrals: Dl Mittal DO [Staff Physician] - See instructions Provider,Giuliano Howell [Primary Care Provider] - See instructions Activity Restrictions/Add. Instructions Additional Instructions/Restrictions: As we discussed I recommend ice weightbearing as tolerated with crutches Tylenol and ibuprofen for symptomatic and supportive care. Please follow-up with your orthopedist for further evaluation and management if you do not have 1 I provided the number for Dr. Mittal. If you have any new continued or worsening signs or symptoms follow-up with your PCP or return to the ER as needed. Clinical Impressions Clinical Impression: Acute pain of left knee Stand Alone Forms Stand Alone Forms: Work/School Release Print Language Print Language: Peruvian Discharge ED Provider: Faustino Ferguson Adult HPI <JARVIS Shah - Last Filed: 06/05/24 21:33> General Chief complaint: PAIN Stated complaint: left knee pain Time Seen by Provider: 06/05/24 19:30 Mode of Arrival: Ambulatory Source of Information: Patient Description of Symptoms (Recalled from ER Triage Doc. by RN): patient states around noon today she was awalking when she twiated her left knee and has had pain since then. denies any falls. 08/14 pain that hurts worse with movement History of Present Illness HPI narrative: Patient presents for evaluation of left knee pain. Patient states that she was walking normally not doing any specific unusual on level ground and felt a sharp pain in her left anterior knee. It has since become increasingly more painful. She does have an extensive history of knee surgeries previously and has had previous hardware placed in that knee. She denies any numbness and tingling loss of motor or sensory but hurts at rest and with walking there is no aggravating or relieving factors. Related Data Home Medications ?Medication ?Instructions ?Recorded ?Confirmed celecoxib 200 mg capsule (Celebrex) 200 mg PO BID 03/06/24 06/06/24 gabapentin 300 mg capsule 300 mg PO TID 03/06/24 06/06/24 naproxen 500 mg tablet 500 mg PO Q12H PRN 03/06/24 06/06/24 buspirone 10 mg tablet 10 mg PO BID PRN 05/31/24 06/06/24 tizanidine 4 mg tablet 4 mg PO TID PRN 05/31/24 06/06/24 Previous Rx's ?Medication ?Instructions ?Recorded ketorolac 10 mg tablet 10 mg PO Q8H PRN pain 5 days #20 02/23/24 tabs aspirin 81 mg tablet,delayed 81 mg PO DAILY #30 tabs 03/06/24 release (Adult Low Dose Aspirin) hydrochlorothiazide 12.5 mg tablet 12.5 mg PO DAILY #30 tabs 04/04/24 omeprazole 20 mg capsule,delayed 20 mg PO DAILY #30 caps 04/19/24 release losartan 50 mg tablet 50 mg PO DAILY #30 tabs 05/03/24 rosuvastatin 20 mg tablet (Crestor) 20 mg PO DAILY #30 tabs 05/03/24 Allergies Allergy/AdvReac Type Severity Reaction Status Date / Time No Known Allergies Allergy Verified 06/06/24 13:33 [facility] <JARVIS Shah - Last Filed: 06/05/24 21:33> [facility] Disclaimer: The information contained in this section may have been updated after the patient was seen, as this information can be updated by other users. Medical History Fatigue Cholecystectomy planned Atypical chest pain GERD (gastroesophageal reflux disease) HTN (hypertension) Family history of ischemic heart disease before age 50 Abnormal electrocardiogram [ECG] [EKG] History of multiple sclerosis Surgical History History of H/O knee surgery Family History Other Afib Cancer Diabetes Social History Smoking Status: Never smoker alcohol intake: never current occupational status: employed Travel in the last 8 weeks: None Other Medical History Have you received the Flu Vaccine for this season: No Have you received the Pneumonia Vaccine: No <JARVIS Shah - Last Filed: 06/05/24 21:33> ROS Obtained: Yes Systems reviewed as appropriate & no additional complaints except as documented Physical Exam <JARVIS Shah - Last Filed: 06/05/24 21:33> General General appearance: alert and in no apparent distress Respiratory Respiratory exam: Present normal lung sounds bilaterally Cardiovascular Cardiovascular exam: Present regular rate Neurological Exam Neurological exam: Present alert and oriented X3 Medical Decision Making <JARVIS Shah - Last Filed: 06/05/24 21:33> Medical Records Medical records reviewed: Yes I reviewed the patient's medical records. Screening: Per USPSTF and CDC recommendations, given the prevalence of disease in our region, it is our hospital?s policy to screen for HIV and viral Hepatitis for all patients aged 18 and over and those with ongoing risk factors. Faustino Inquiry Pt receiving controlled substance: No Vital Signs: 06/05/24 18:13 06/05/24 21:42 Temperature 98.4 F 98.1 F Temperature Source Oral Pulse Rate 84 Pulse Rate [Right] 97 H Respiratory Rate 16 20 Blood Pressure 130/89 Blood Pressure [Right Arm] 133/70 Blood Pressure Mean [Right Arm] 91 Blood Pressure Source [Right Arm] Automatic Cuff Blood Pressure Position [Right Arm] Sitting 02 Sat by Pulse Oximetry 100 Oxygen Delivery Method Room Air Room Air Orders (Tests/Meds): ED MEDICATIONS Discontinued Medications Generic Name Dose Route Start Last Admin Trade Name Freq PRN Reason Stop Dose Admin Acetaminophen 1,000 mg 06/05/24 19:41 06/05/24 19:46 Acetaminophen 500mg Tab PO 06/05/24 19:42 1,000 mg ONCE ONE Administration ORDERS Category Date Time Status Knee XR left 3 views [XR knee LT 3V] Stat Exams 06/05/24 19:40 Completed Tibia/fibula XR left 2 views [XR tibia fibula LT 2V] Exams 06/05/24 19:40 Completed Stat Medical Decision Narrative: In summary patient is a 48-year-old female who presents to the emergency department for evaluation of left anterior knee pain. Patient is hemodynamically stable upon arrival, afebrile. Physical exam is remarkable for focal tenderness at the tibial tuberosity but there is no evidence of ecchymosis. Erythema edema joint swelling or palpable bony deformity. Patient has full range of motion but it is painful both in flexion and extension.. Differential diagnosis includes hardware failure versus occult fracture versus connective tissue injury. Initial workup will be conducted with plain film x-rays. Initial interventions include Tylenol ibuprofen. Initial workup reviewed by me and patient's pain is exactly over where there is a previous tibial screw but I do not see any evidence of fracture via my informal interpretation prior to radiology read.. Upon repeat evaluation patient reports modest improvement in pain after Tylenol and ibuprofen. Given this patient is appropriate for discharge with referral back to orthopedic surgery, weightbearing as tolerated with a set of crutches given to the patient. <Faustino Ferguson MD - Last Filed: 06/06/24 16:47> Vital Signs: 06/05/24 18:13 06/05/24 21:42 Temperature 98.4 F 98.1 F Temperature Source Oral Pulse Rate 84 Pulse Rate [Right] 97 H Respiratory Rate 16 20 Blood Pressure 130/89 Blood Pressure [Right Arm] 133/70 Blood Pressure Mean [Right Arm] 91 Blood Pressure Source [Right Arm] Automatic Cuff Blood Pressure Position [Right Arm] Sitting 02 Sat by Pulse Oximetry 100 Oxygen Delivery Method Room Air Room Air Orders (Tests/Meds): ED MEDICATIONS Discontinued Medications Generic Name Dose Route Start Last Admin Trade Name Freq PRN Reason Stop Dose Admin Acetaminophen 1,000 mg 06/05/24 19:41 06/05/24 19:46 Acetaminophen 500mg Tab PO 06/05/24 19:42 1,000 mg ONCE ONE Administration ORDERS Category Date Time Status Knee XR left 3 views [XR knee LT 3V] Stat Exams 06/05/24 19:40 Completed Tibia/fibula XR left 2 views [XR tibia fibula LT 2V] Exams 06/05/24 19:40 Completed Stat Medical Decision Narrative: In summary patient is a 48-year-old female who presents to the emergency department for evaluation of left anterior knee pain. Patient is hemodynamically stable upon arrival, afebrile. Physical exam is remarkable for focal tenderness at the tibial tuberosity but there is no evidence of ecchymosis. Erythema edema joint swelling or palpable bony deformity. Patient has full range of motion but it is painful both in flexion and extension.. Differential diagnosis includes hardware failure versus occult fracture versus connective tissue injury. Initial workup will be conducted with plain film x-rays. Initial interventions include Tylenol ibuprofen. Initial workup reviewed by me and patient's pain is exactly over where there is a previous tibial screw but I do not see any evidence of fracture via my informal interpretation prior to radiology read.. Upon repeat evaluation patient reports modest improvement in pain after Tylenol and ibuprofen. Given this patient is appropriate for discharge with referral back to orthopedic surgery, weightbearing as tolerated with a set of crutches given to the patient. I was consulted by the ALINA, and we discussed the complexity of the problems being addressed.I approved the treatment and management plan for this patient?s care in the Emergency Department, thus performing a substantive portion of the medical decision making.Signed, Faustino Ferguson MD MBA Critical Care <JARVIS Shah - Last Filed: 06/05/24 21:33> Critical Care Time Critical Care Time: No
--- NOTE | 2024-06-05 19:40 | XR_ITS ---
PROCEDURE INFORMATION: Exam: XR Left Tibia and Fibula Exam date and time: 06/05/2024 7:59 PM Age: 48 years old Clinical indication: Pain; Knee; Left; Additional info: Acute anterior knee pain TECHNIQUE: Imaging protocol: Radiologic exam of the left tibia and fibula. Views: 2 views. COMPARISON: CR XR KNEE LT 3V 06/05/2024 7:58 PM FINDINGS: Bones/joints: Screw fixation of the tibial tuberosity. Large marginal osteophytes and significant degenerative changes involving the 3 compartments of the left knee. Small marginal osteophytes and degenerative changes involving the left ankle mortise. Soft tissues: Normal. IMPRESSION: 1. Large marginal osteophytes and significant degenerative changes involving the 3 compartments of the left knee. 2. Small marginal osteophytes and degenerative changes involving the left ankle mortise.
--- NOTE | 2024-06-05 19:40 | XR_ITS ---
PROCEDURE INFORMATION: Exam: XR Left Knee Exam date and time: 06/05/2024 7:58 PM Age: 48 years old Clinical indication: Pain; Lower leg; Left; Additional info: Acute anterior knee pain TECHNIQUE: Imaging protocol: Radiologic exam of the left knee. Views: 3 views. COMPARISON: No relevant prior studies available. FINDINGS: Bones/joints: Large marginal osteophytes and significant degenerative changes involving the 3 compartments of the left knee. The screw fixation of the tibial tuberosity. Soft tissues: Normal. IMPRESSION: Large marginal osteophytes and significant degenerative changes involving the 3 compartments of the left knee.
[2024-06-05] MEDS: ACETAMINOPHEN 500MG TAB 1000 MG PO (19:46)
[2024-06-05 21:42] VITALS: BP 130/89; PULSE 84; RESP 20; TEMP 36.7; O2SAT 99
== END 2024-06-05 21:45 | disposition home or self-care (01) ==
PROVIDERS: Emergency Provider Emergency Medicine
DX: M25.562 Pain in left knee (principal)
CPT/HCPCS: 73562; 73590; 99283

== ENCOUNTER 2024-06-25 15:55 | Outpatient (CLI) | payer OTHER, SELFPAY ==
--- NOTE | 2024-06-25 16:15 | MR_ITS ---
PROCEDURE INFORMATION: Exam: MR Left Lower Extremity Joint Without Contrast, Knee Exam date and time: 06/25/2024 4:06 PM Age: 48 years old Clinical indication: Pain; Left; Prior surgery; Surgery date: 6+ months; Surgery type: HX of knee surgery; Additional info: Lt knee pain. [place] a pop while walking. Eval of meniscus TECHNIQUE: Imaging protocol: Magnetic resonance imaging of the left lower extremity joint without contrast. Exam focused on the knee. COMPARISON: CR XR KNEE LT 3V 06/05/2024 7:58 PM FINDINGS: Limitations: Study is technically limited due to motion artifact. Bones/joints: There is denuded articular cartilage along the weight-bearing surface of the medial knee compartment and mild thinning of articular cartilage of lateral compartment with marginal osteophytes on both sides. There is diffuse denuded articular cartilage of the patellofemoral joint with marginal osteophytes consistent with grade 3-grade 4 chondromalacia. There is metallic artifact projecting over the anterior tibial tubercle. There is a moderate-sized joint effusion. Medial meniscus: There is outward extrusion of the body and anterior horn of the medial meniscus with amputation meniscal apex resulting in a blunted, foreshortening contour is secondary to diffuse free margin deficiency. Lateral meniscus: There is outward extrusion of the body and anterior horn lateral meniscus with amputation of the meniscal apex resulting in a blunted foreshortened contour and secondary diffuse free margin deficiency. Anterior cruciate ligament: There is pronounced soft tissue thickening within the intercondylar notch insinuating around the cruciate ligaments presumably secondary to chronic synovitis and limiting assessment of the ACL which is poorly visualized. There is no complete tear seen in the coronal plane of the ACL. Posterior cruciate ligament: PCL is partially obscured by the chronic synovial thickening but no tear detected. Medial capsule and supporting structures: Unremarkable. No tear. Lateral capsule and supporting structures: Unremarkable. No tear. Extensor mechanism of knee: Unremarkable. No tear. Patellar tendon attachment limited due to metallic artifact. Soft tissues: Unremarkable. IMPRESSION: 1. Limited examination. 2. Pronounced degenerative free margin deficiency involving both the medial and lateral meniscus which are upwardly extruded from the joint surface of the medial and lateral knee compartments. 3. 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 4. Chronic synovitis resulting in soft tissue thickening insinuating around the cruciate ligaments limiting assessment of the ACL.
== END 2024-06-25 23:59 | disposition home or self-care (01) ==
LOC: RAD 15:56
PROVIDERS: Visit Provider Physician Assistant
DX: M25.562 Pain in left knee (principal); M23.92 Unspecified internal derangement of left knee
CPT/HCPCS: 73721

== ENCOUNTER 2024-07-11 10:40 | Outpatient (CLI) | payer OTHER, SELFPAY ==
[2024-07-11 11:07] VITALS: BMI 36.8
[2024-07-11 11:44] LABS: Basophils % 0.4 % (0.1-2.0); Eosinophils # 0.2 Kmm3 (0.0-0.4); Eosinophils % 2.2 % (0.1-12.0); Hematocrit 33.2 % (37.0-47.0); Hemoglobin 10.3 g/dL (12.2-16.2); Immature Granulocytes # 0.02 10^3uL; Immature Granulocytes % 0.3 %; Lymphocytes # 1.6 K/mm3 (0.7-4.5); Lymphocytes % 23.5 % (10-50); Mean Corpuscular Hemoglobin 25.3 pg (27.0-31.2); Mean Corpuscular Volume 81.6 fl (81-99); Mean Platelet Volume 10.9 fl (7.4-10.4); Monocytes # 0.3 K/mm3 (0.1-1.0); Monocytes % 4.8 % (1.7-9.3); Neutrophils # 4.6 K/mm3 (1.8-7.8); Neutrophils % 68.8 % (37.0-80.0); Nucleated Red Blood Cells # 0 10^3/uL; Nucleated Red Blood Cells % 0 %; Platelet Count 228 K/mm3 (142-424); Red Blood Count 4.07 M/mm3 (4.20-5.40); Red Cell Distribution Width 14.9 % (11.5-17.5); Red Cell Distribution Width-SD 43.8 fL; White Blood Count 6.7 K/mm3 (4.8-10.8)
[2024-07-11 11:56] LABS: Anion Gap 6.1 mEq/L (5-15); Blood Urea Nitrogen 13 mg/dl (7-17); Carbon Dioxide 25 mmol/L (22.0-30.0); Chloride 110 mmol/L (98-107); Creatinine Clearance Estimated 161 mL/min (50-200); Estimated Glomerular Filt Rate 76 ml/min (>60); GFR (African American) 92 ML/MIN (>60); Glucose 96 mg/dl (74-100); Potassium 4.1 mmoL/L (3.5-5.1); Sodium 137 mmol/L (136-145)
[2024-07-11 12:07] LABS: HCG Qualitative, Serum Negative (Negative)
== END 2024-07-11 23:59 | disposition home or self-care (01) ==
LOC: PREOP 10:41
PROVIDERS: PCP Nurse Practitioner Family; Visit Provider Orthopaedic Surgery
DX: Z01.812 Encounter for preprocedural laboratory examination (principal)
CPT/HCPCS: 80048; 84703; 85025

== ENCOUNTER 2024-07-16 10:41 | Day surgery (SDC) | payer OTHER, SELFPAY ==
[2024-07-11 12:34] VITALS: BMI 36.8
[2024-07-16] VITALS (11 sets, daily range): BP systolic 124–157; BP diastolic 78–103; PULSE 69–87; RESP 16–18; TEMP 36.4–36.8; O2SAT 97–100
[2024-07-16] MEDS: LACTATED RINGERS 1000ML 1,000 ML 100 ML IV (11:25)
[2024-07-16] MEDS: CEFAZOLIN SODIUM 2 GM in 0.9 % SODIUM CHLORIDE 100 ML IV (12:41)
[2024-07-16] MEDS: BUPIVACAINE 0.25% 30ML VIAL 75 MG (12:42)
[2024-07-16] MEDS: SODIUM CHLORIDE IRRIG SOLUTION 6,000 ML 6000 ML IR (12:42)
--- NOTE | 2024-07-16 12:58 | P.OP_ITS ---
Date of procedure: 07/16/24 Pre-op Diagnosis:: Left knee medial lateral meniscus tear Left knee osteoarthritis Post-op Diagnosis:: Left knee complex tear posterior horn and body lateral medial meniscus Left knee significant grade IV chondromalacia trochlea grade IV chondromalacia medial femoral condyle extensive synovitis Left knee grade IV chondromalacia lateral femoral condyle isolated Tearing of ACL graft Procedure performed:: 1. Left knee arthroscopy with partial medial and lateral meniscectomies 2. Left knee arthroscopy with chondroplasty trochlea medial femoral condyle lateral femoral condyle and extensive synovectomy Surgeon:: Dl Mittal DO [employer](s):: [employer] Anesthesia: GETA Estimated blood loss (mL): 0 Operative findings:: Large macerated tears of the medial and lateral meniscus significant degenerative changes in the patellofemoral joint trochlea medial femoral condyle lateral femoral condyle. Operative note:: Patient identified preoperatively. Left knee marked with yes and my initials. Transported operative suite. Placed upon operating bed. General anesthesia was administered and airway secured. Left lower extremity was then prepped and draped within the knee car. Once prepped and draped final operative timeout performed to identify proper patient procedure and extremity. Everyone involved in case agreed. There is no count indications beginning. Did receive preoperative antibiotics. Marking pen was used to matthew the bony landmarks of the knee and standard portal sites. Esmarch was used to exsanguinate the extremity pneumatic tourniquet inflated to 300 mmHg. Skin knife was used incise standard anterior lateral portal. Blunt with trocar was placed in patellofemoral joint exchange with a camera. Diagnostic arthroscopy began. Within the patellofemoral joint there is significant grade IV chondromalacia of the trochlea and significant chondromalacia on the medial rim of the medial femoral condyle scope into the medial gutter there is a large amount of synovitis present and then into the medial joint line where the anterior medial portal was made. There is a large tear of the medial meniscus using combination of straight biter and sucker shaver partial medial meniscectomy was performed back to stable rim there is significant synovitis which was debrided with a sucker shaver. Loose fraying cartilage of the medial femoral condyle. Chondroplasty was performed attention was brought intercondylar notch there was tearing of the previous graft with synovitis significant so debridement was performed with impinging soft tissue on the medial femoral condyle which was debrided. Attention is brought to the lateral joint line of the lateral joint line there is a isolated full-thickness grade IV chondromalacia lateral femoral condyle a complex tear involving most of the body of the lateral meniscus using a combination of straight biter and sucker shaver partial medial meniscectomy was performed back to stable rim. Wound into the medial lateral gutters synovitis was present in the patellofemoral joint which was debrided swept back into the patellofemoral joint patella did show quite did track within the trochlea however there is grade 4 full-thickness chondromalacia of the trochlea. Pathology and the significant but no further acute pathology seen the camera removed the joint was drained local anesthesia infiltrated the portal sites skin closed with nylon stitch sterile dressing placed from toe to thigh patient waken anesthesia taken recovery in stable condition. Condition: stable Disposition: PACU Complications:: None apparent
--- NOTE | 2024-07-16 13:04 | EXP.ANES.CKL ---
[facility] Disclaimer: The information contained in this section may have been updated after the patient was seen, as this information can be updated by other users. Medical History Fatigue Cholecystectomy planned Atypical chest pain GERD (gastroesophageal reflux disease) HTN (hypertension) Family history of ischemic heart disease before age 50 Abnormal electrocardiogram [ECG] [EKG] History of multiple sclerosis Surgical History History of cholecystectomy History of H/O knee surgery Family History Other Afib Cancer Diabetes TRALI (transfusion related acute lung injury) Social History Smoking Status: Never smoker alcohol intake: never substance use type: denies use current occupational status: employed Travel in the last 8 weeks?: None [facility] Anesthesia Checklist Patient Identification Patient Identification: Arm Band Structural Data Admitted From: Home Planned Operative Procedure/s: Left Knee Arthroscopy Consent for Planned Operative Procedure(s) Verified: Yes Verified Documents: Surgical Consent and History and Physical NPO Status Verified Time NPO: 00:00 Additional verifications Anesthesia Reactions: No Hx Blood Transfusions: No Blood Transfusion Reaction: No Airway Assessment Mallampati Score:: Class II C-Spine Mobility Assessed: Yes TMJ Mobility Assessed: Yes Dentition: Good Dentition Neurological Assessment Level of Consciousness: Awake, Alert and Appropriate Anesthesia Plan Anesthesia Risk discussed: Yes Anesthesia Plan: Verified ASA Class: II Anesthesia Type: General
--- NOTE | 2024-07-16 13:05 | EXP.ANES.I ---
[facility] Anesthesia Record Part I Anesthesia Record I Intake, IV Amount: 800 Hydration: Adequate Estimated blood loss (mL): 5 Urine output (mL): 0 Blood Products used (#): none Blood Pressure: 136/82 SaO2: 97 Pulse Rate: 87 Airway Patency: Patent Respiratory Rate: 16 Temperature: 97.6 F Patient is:: Drowsy and Stable Stable to PACU at:: 13:00
[2024-07-16] MEDS: HYDROMORPHONE 2MG/ML SYRINGE 0.5 MG IV ×2 (13:26→13:34)
--- NOTE | 2024-07-16 13:47 | SUR.PHASEI ---
Patient transported to post op. Report given to ASHLEE John. Vital signs stable and patient comfortable at this time.
--- NOTE | 2024-07-16 16:01 | P.PNANES_ITS ---
[facility] Anesthesia Record Part II Anesthesia Record Part II Discharge Time: 13:38 Destination: Surgical Day Care (OP Surgery) PACU nurse assessment reviewed?: Yes Patient Condition:: Good Anesthesia Complications:: None Swallowing reflex intact?: Yes Airway Patency: Patent Cyanosis?: No Blood Pressure: 124/86 SaO2: 98 Respiratory Rate: 17 Pulse Rate: 73 Temperature: 98.1 F Mental Status: Alert & Oriented Pain level:: 8 Nausea and/or vomitting:: None Intake, IV Amount: 0 Hydration: Adequate
== END 2024-07-16 14:17 | disposition home or self-care (01) ==
PROVIDERS: PCP Nurse Practitioner Family; Visit Provider Orthopaedic Surgery
PROC: (CPT 29870; principal; 2024-07-16 12:15)
DX: S83.242A Other tear of medial meniscus, current injury, left knee, initial encounter (principal); S83.282A Other tear of lateral meniscus, current injury, left knee, initial encounter; M17.32 Unilateral post-traumatic osteoarthritis, left knee; I10 Essential (primary) hypertension; Z79.899 Other long term (current) drug therapy; M25.462 Effusion, left knee
CPT/HCPCS: 29880; 96374; J0690; J1100; J1171; J2250; J2405; J3010; J7120

== ENCOUNTER 2024-08-21 07:46 | Outpatient (RCR) | payer OTHER, SELFPAY ==
--- NOTE | 2024-08-21 08:47 | HMH.PTOPEV ---
PT Outpatient Evaluation Rehab PT Outpatient Evaluation Start: 08/21/24 07:54 Freq: Status: Active Protocol: Document 08/21/24 07:54 LOUIS (Rec: 08/21/24 08:47 LOUIS [id number]) E-signed By Fede Garcia, PT Outpatient Therapy Subjective History Subjective History Pt is a 48 yof who presents status post left knee arthroscopy with medial and lateral partial meniscectomy, chondroplasty, synovectomy with Dr. Mittal on 07/16/2024. Pt reports that a few weeks prior to surgery, she was walking and felt a pop in her knee and went to the ER and diagnosed with a torn meniscus. Pt reports that she has steadily improved since surgery . Reports a lot of difficulty with walking longer distances, squatting and stairs. Pt reports that her job requires her to go up/down several sets of stairs each day. Pt reports that she does not have a date set for return to work. Occupation: [employer] PMH: MS New diagnosis of No cancer in past 12 months? Chief Complaint Pain,Swelling Symptom Type Ache Symptoms Relieved By Ice Symptoms Aggravated Standing,Walking By Prior Functional None Limitations Current Functional Standing,Squatting,Walking,Stairs Limitations Symptom Description Intermittent,Activity Dependent Level of pain today 2 (0-10) Pain scale - at its 0 best (0-10) Pain scale - at its 4 worst (0-10) Hip/Knee Eval Gait Observation General Gait Pattern Antalgic Gait,Decrease Weight Bear (L),Decrease Stride Observation Lngth (R) Palpation Tenderness left Knee Palpation Tenderness Finding Knee Palpation TTP 3/4 to posterior knee Overall Comment MMT Hip Flexion Strength 4- Good- Grade Hip Abduction 3 Fair Strength Grade Hip Adduction 3 Fair Strength Grade Hip Extension 4- Good- Strength Grade Knee Extension 4- Good- Strength Grade Knee Flexion 4- Good- Strength Grade ROM Knee Extension 0 Active Range of Motion (degrees) Knee Flexion Active 125 Range of Motion ( degrees) Lower Extremity Functional Index Activities Today, do you or would you have any difficulty at all with: a.Any of your usual Quite a bit of difficulty work, housework or school activities b. Your usual Quite a bit of difficulty hobbies, recreational or sporting activities c. Getting into or A little bit of difficulty out of the bath d. Walking between Moderate difficulty rooms e. Putting on your Moderate difficulty shoes or socks f. Squatting Extreme difficulty or unable to perform activity g. Lifting an object Moderate difficulty , like a bag of groceries from the floor h. Performing light A little bit of difficulty activities around your home i. Performing heavy Extreme difficulty or unable to perform activity activities around your home j. Getting into or Moderate difficulty out of a car k. Walking 2 blocks Extreme difficulty or unable to perform activity l. Walking a mile Extreme difficulty or unable to perform activity m. Going up or down Extreme difficulty or unable to perform activity 10 stairs (about 1 flight of stairs) n. Standing for 1 Extreme difficulty or unable to perform activity hour o. Sitting for 1 Extreme difficulty or unable to perform activity hour p. Running on even Extreme difficulty or unable to perform activity ground q. Running on uneven Extreme difficulty or unable to perform activity ground r. Making sharp Extreme difficulty or unable to perform activity turns while running fast s. Hopping Extreme difficulty or unable to perform activity t. Rolling over in A little bit of difficulty bed LEFI Score Lower Extremity 19 Functional Index Score Outpatient Therapy Assessment Impairments Problems/ Palpation Tenderness,Impaired Strength,Impaired Gait Impairmments Pattern,Impaired Walking,Impaired Standing,Impaired Stair Climbing,Impaired Squatting,Impaired Recreational Activities,Impaired Work Activities,Subjective C/O Pain Prognosis Rehab Potential Good Comment w HEP compliance Clinical Impression Consistent with Yes Diagnosis Consistent with Meniscus Tear (S83.2) Additional details: s/p Arthroscopy performed 07/16/24 Short Term Goals Number of Weeks 3 Decreased Palpation Yes: 1-2/4 to TTP assessment above Tenderness Increase Strength Yes: 4/5 to L hip/knee Increase Ability to Yes: 1/4 mile without increasing symptoms Walk Increase Ability to Yes: 30 minutes without increasing symptoms Stand Improve LEFI Score Yes: >29 Decrease Subjective Yes: 2/10 at worst to improve QOL C/O Pain Patient to be Ind w/ Yes HEP Longterm Goals Number of Weeks 6 Decreased Palpation Yes: 0/4 to TTP assessment above Tenderness Increase Strength Yes: 4+/5 to L hip/knee Improve Gait Pattern Yes: Normalized gait mechanics without Assistive Device Increase Ability to Yes: 1/2 mile without increasing symptoms Walk Increase Ability to Yes: 1 hour without increasing symptoms Stand Improve Ability to Yes: Flight of stairs with reciprocal stepping pattern Climb Stairs Improve Ability to Yes: Proper mechanics and without increasing pain Squat Improve Tolerance to Yes: Return to work Work Activities Improve LEFI Score Yes: >50 Decrease Subjective Yes: 0-1/10 at worst to improve QOL C/O Pain Patient to be Ind w/ Yes Advanced HEP Outpatient Therapy Plan of Care Treatment Plan May Include Therapeutic Exercise Yes Including Home Exercise Program Manual Therapy Yes Techniques Neuromuscular Re- Yes education Therapeutic Yes Activities to Return to Previous Functional/Work Level Gait Training Yes ADL/Self Care Yes Education Thermal Modalities Yes Electrical Yes Stimulation Ultrasound/ Yes Phonophoresis Iontophoresis Yes Manual Lymphatic Yes Drainage Eval/Re-Eval Yes Frequency Times per week 1-2 Duration Number of Weeks 6 Addendums This patient is a No candidate for social or vocational rehab ? Patient/Guardian Yes verbally acknowledges understanding of treatment program and consents to further treatment? Patient/Guardian Yes verbally acknowledges understanding of diagnosis, prognosis and goals for treatment? Eval Complexity PT Charges 90917 - Moderate Complexity Shoulder/Elbow Eval Shoulder Objective Measurements Elbow Objective Measurements PHYSICIAN CERTIFICATION: I certify the specified therapy services for Nahomi Melissa are required, authorized, and reviewed every 30 days.
== END 2024-08-21 23:59 | disposition home or self-care (01) ==
LOC: PT 07:46
PROVIDERS: Visit Provider Physician Assistant
DX: S83.282A Other tear of lateral meniscus, current injury, left knee, initial encounter (principal)
CPT/HCPCS: 97162

== ENCOUNTER 2024-10-01 08:00 | Outpatient (RCR) | payer OTHER, SELFPAY ==
--- NOTE | 2024-10-01 09:48 | HMH.RHREAS ---
Rehab Reassessment Rehab OP Re-assessment Start: 09/04/24 08:06 Freq: Status: Active Protocol: Document 10/01/24 09:07 PATRICIABIENVENIDO (Rec: 10/01/24 09:47 LOUIS [id number]) E-signed By Fede Garcia PT Lower Extremity Functional Index Activities Today, do you or would you have any difficulty at all with: a.Any of your usual A little bit of difficulty work, housework or school activities b. Your usual Moderate difficulty hobbies, recreational or sporting activities c. Getting into or A little bit of difficulty out of the bath d. Walking between A little bit of difficulty rooms e. Putting on your Moderate difficulty shoes or socks f. Squatting Extreme difficulty or unable to perform activity g. Lifting an object No difficulty , like a bag of groceries from the floor h. Performing light A little bit of difficulty activities around your home i. Performing heavy Quite a bit of difficulty activities around your home j. Getting into or A little bit of difficulty out of a car k. Walking 2 blocks Extreme difficulty or unable to perform activity l. Walking a mile Quite a bit of difficulty m. Going up or down Quite a bit of difficulty 10 stairs (about 1 flight of stairs) n. Standing for 1 Extreme difficulty or unable to perform activity hour o. Sitting for 1 A little bit of difficulty hour p. Running on even Extreme difficulty or unable to perform activity ground q. Running on uneven Extreme difficulty or unable to perform activity ground r. Making sharp Extreme difficulty or unable to perform activity turns while running fast s. Hopping Quite a bit of difficulty t. Rolling over in A little bit of difficulty bed LEFI Score Lower Extremity 33 Functional Index Score Rehab Re-assessment Subjective Subjective Pt reports that she is approximately 20-25% improved this date. Pt reports that she was feeling much better and progressing well. However, approximately 1 week ago , she felt a pop in her L knee. Pt reports her pain has been more intense and she also reports that she has noticed more popping and clicking. Pt also reports increased swelling. Pt reports that she is going to Dr. Mittal later this morning for a follow-up appointment. Pt reports that her pain today is a 4/10. Reports that in the last 48 hours, it has reached a 7/10. Pt reports that her knee does feel stronger and reports that she would like to continue with PT. Pt reports continued difficulty standing for long periods, walking longer distances. Objective Objective Notes LEFS: 33 (19 on IE) TTP: 2/4 to L knee ROM: 0-125 Strength: - L hip flexion 4/5 - L hip abd 4/5 - L hip add 4/5 - L knee ext 4/5 - L knee flex 4/5 Assessment Progress Assessment Slower Than Expected Assessment Notes Pt presents s/p L knee arthroscopy performed on 07/16/24 . Pt's initial evaluation was performed on 08/21. She has attended 4 PT sessions in that time frame, focusing on improving her L knee/hip strength, L knee motor control, balance and coordination. Pt was responding well to PT with improved strength and gait mechanics. However, in the time since her last PT session, she has reported feeling a pop in her knee. Pt presents this date slightly below where she has been in prior visits. She was responding well, prior to this incident. Pt would continue to benefit from skilled PT at this time. Patient goals met ST,2,5,7 LT Plan Plan Continue as per initial POC Frequency of Therapy 2/week Duration of therapy 4 weeks Time and Billing Re-Eval Time 10 Re-Eval Billing 1 Units Charge for PT Yes reassessment? PHYSICIAN CERTIFICATION: I certify the specified therapy services for Nahomi Melissa are required, authorized, and reviewed every 30 days.
== END 2024-10-01 23:59 | disposition home or self-care (01) ==
LOC: PT 08:00
PROVIDERS: Visit Provider Physician Assistant
DX: S83.282A Other tear of lateral meniscus, current injury, left knee, initial encounter (principal)
CPT/HCPCS: 97110; 97164; 97530